=== PATIENT | female | born 1985 | race Caucasian/White ===

== ENCOUNTER 2016-03-02 06:08 | Emergency (ER) | payer SELFPAY ==
[2016-03-02] MEDS ORDERED: Naproxen 500 MG TAB ONE (07:09)
[2016-03-02] MEDS ORDERED: HYDROcodone/Acetaminophen 10/325 mg Tablet ONE (07:09)
[2016-03-02 07:44] LABS: Bilirubin Negative (Negative); Blood, Urine Negative (Negative); Clarity Clear (Clear); Glucose, Urine (Dipstick) 100 mg/dL (Negative); Leukocyte Negative (Negative); Nitrite Negative (Negative); Protein, Urine (Dipstick) Negative (Neg-Trace); Urobilinogen 0.2 mg/dL (0.2-1.0); pH, Urine 6.5 (5.0-9.0)
[2016-03-02 08:03] LABS: ALT (SGPT) 8 U/L (0-55); AST (SGOT) 9 U/L (5-34); Albumin 4.1 g/dL (3.5-5.0); Alkaline Phosphatase 48 U/L (40-150); Anion Gap 15 mmol/L (10-20); BUN (Urea Nitrogen) 8 mg/dL (7.0-18.7); Bilirubin, Total 0.7 mg/dL (0.2-1.2); Calc. Creatinine Clearance 0 mL/min (70-130); Calcium 9.1 mg/dL (7.8-10.44); Carbon Dioxide 22 mmol/L (22-29); Chloride 105 mmol/L (98-107); Estimated GFR-MDRD Greater than 90; Glucose 143 mg/dL (70-105); Sodium 138 mmol/L (136-145)
[2016-03-02 08:16] LABS: #Basophils 0.1 thou/uL (0.0-0.2); #Eosinphils 0.1 thou/uL (0.0-0.7); #Lymphocytes 2.1 thou/uL (1.20-3.40); #Monocytes 0.5 thou/uL (0.11-0.59); #Neutrophils 6.8 thou/uL (1.40-6.50); %Basophils 0.7 % (0.0-1.0); %Lymphocytes 22.2 % (21.0-51.0); %Monocytes 5.3 % (0.0-10.0); %Neutrophils 70.8 % (42.0-75.0); Hemoglobin 15.7 g/dL (12.0-16.0); Mean Corpuscular HGB CONC 36.9 g/dL (32.0-36.0); Mean Platelet Volume 7.1 fL (7.4-10.4); Platelet Count 184 thou/uL (130-400); RBC Distribution Width 10.4 % (11.5-14.5); Red Blood Cell (RBC) Count 4.49 mill/uL (4.20-5.40); White Blood Cell (WBC) Count 9.6 thou/uL (4.8-10.8)
[2016-03-02 08:18] LABS: Globulin 2.5 g/dL (2.4-3.5); Protein, Total 6.6 g/dL (6.0-8.3)
[2016-03-02 08:58] LABS: Bacteria/HPF Rare-Few HPF (None Seen); RBC/HPF 0-3 HPF (0-3); Renal Epithelial 0-3 HPF (0-3); Transitional Epithelial 0-3 HPF (0-3); WBC/HPF 0-3 HPF (0-3); Yeast-All Forms None Seen HPF (None Seen)
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
== END 2016-03-02 09:25 | disposition home or self-care (01) ==
LOC: MADERS 06:08
DX: M62.838 Other muscle spasm (principal); M76.9 Unspecified enthesopathy, lower limb, excluding foot; E11.9 Type 2 diabetes mellitus without complications; F41.9 Anxiety disorder, unspecified; F31.9 Bipolar disorder, unspecified; F17.210 Nicotine dependence, cigarettes, uncomplicated
CPT/HCPCS: 36415; 36416; 80053; 81003; 81015; 85025; 87086; 99284

== ENCOUNTER 2016-04-20 20:57 | Emergency (ER) | payer SELFPAY ==
[2016-04-20] MEDS ORDERED: Sulfameth/Trimethoprim DS 800-160mg TAB ONE (21:28)
== END 2016-04-20 21:50 | disposition home or self-care (01) ==
LOC: MADERS 20:57
DX: L03.312 Cellulitis of back [any part except buttock and flank] (principal); I10 Essential (primary) hypertension; E11.9 Type 2 diabetes mellitus without complications; F31.9 Bipolar disorder, unspecified; F41.9 Anxiety disorder, unspecified; F17.210 Nicotine dependence, cigarettes, uncomplicated; Z79.4 Long term (current) use of insulin
CPT/HCPCS: 36416; 99283

== ENCOUNTER 2016-05-14 19:44 | Emergency (ER) | payer SELFPAY ==
[2016-05-14 20:19] LABS: Bilirubin Negative (Negative); Blood, Urine Large (Negative); Clarity Cloudy (Clear); Glucose, Urine (Dipstick) Negative (Negative); Leukocyte Negative (Negative); Nitrite Negative (Negative); Pregu Control Bar Appear? YES (CONTROL BAR); Protein, Urine (Dipstick) Negative (Neg-Trace); Specific Gravity 1.025 (1.002-1.036); Specific Gravity, Urine 1.025 (1.005-1.030); Urobilinogen 0.2 mg/dL (0.2-1.0)
[2016-05-14 20:26] LABS: Bacteria/HPF Rare-Few HPF (None Seen); RBC/HPF GREATER THAN 50-TNTC HPF (0-3); WBC/HPF 0-3 HPF (0-3)
== END 2016-05-14 20:29 | disposition home or self-care (01) ==
LOC: MADERS 19:44
DX: N76.0 Acute vaginitis (principal); E11.9 Type 2 diabetes mellitus without complications; F41.9 Anxiety disorder, unspecified; F31.9 Bipolar disorder, unspecified; F17.210 Nicotine dependence, cigarettes, uncomplicated; Z79.4 Long term (current) use of insulin
CPT/HCPCS: 36416; 81003; 81015; 81025; 99284

== ENCOUNTER 2016-06-23 20:54 | Emergency (ER) | payer SELFPAY ==
[~2016-06-23 20:54] MED LIST: Iopamidol 370 76% 100 ML VIAL ONE; Sodium Chloride 0.9% 100 ML BAG ONE
[2016-06-23] MEDS ORDERED: Ketorolac Tromethamine 30 MG/ML VIAL ONE (21:39)
[2016-06-23 22:07] LABS: BHCG - Serum NEGATIVE (NEGATIVE); Pregs Control Background? CLEAR/WHITE (CLR/WHITE); Pregs Control Bar Appear? YES (CONTROL BAR)
[2016-06-23 22:10] LABS: Amphetamine Not Detected (NotDetected); Barbiturates Screen Not Detected (NotDetected); Benzodiazepine Screen Not Detected (NotDetected); Cocaine Metabolite Screen Not Detected (NotDetected); Medtox Control Line Valid? VALID (VALID); Methadone Not Detected (NotDetected); Methamphetamine Not Detected (NotDetected); Opiate Screen Not Detected (NotDetected); Oxycodone Screen Not Detected (NotDetected); Phencyclidine (PCP) Not Detected (NotDetected); THC/Cannabinoid Screen Detected (NotDetected); Tricyclic Screen Not Detected (NotDetected)
[2016-06-23 22:12] LABS: #Basophils 0.1 thou/uL (0.0-0.2); #Eosinphils 0.1 thou/uL (0.0-0.7); #Lymphocytes 2.2 thou/uL (1.20-3.40); #Monocytes 0.5 thou/uL (0.11-0.59); #Neutrophils 7.5 thou/uL (1.40-6.50); %Basophils 0.7 % (0.0-1.0); %Eosinophils 1.3 % (0.0-10.0); %Lymphocytes 20.9 % (21.0-51.0); %Monocytes 4.4 % (0.0-10.0); %Neutrophils 72.7 % (42.0-75.0); Hemoglobin 16.9 g/dL (12.0-16.0); Mean Corpuscular HGB CONC 37.5 g/dL (32.0-36.0); Mean Corpuscular Hemoglobin 36.1 pg (27.0-31.0); Mean Corpuscular Volume 96.1 fl (81.0-99.0); Mean Platelet Volume 7.3 fL (7.4-10.4); Platelet Count 212 thou/uL (130-400); RBC Distribution Width 10.5 % (11.5-14.5); Red Blood Cell (RBC) Count 4.67 mill/uL (4.20-5.40); White Blood Cell (WBC) Count 10.3 thou/uL (4.8-10.8)
[2016-06-23 22:13] LABS: Clarity Clear (Clear)
[2016-06-23 22:14] LABS: Bilirubin Negative (Negative); Blood, Urine Negative (Negative); Glucose, Urine (Dipstick) 250 mg/dL (Negative); Leukocyte Negative (Negative); Nitrite Negative (Negative); Protein, Urine (Dipstick) Negative (Neg-Trace); Specific Gravity, Urine 1.029 (1.002-1.036); Urobilinogen 0.2 mg/dL (0.2-1.0); pH, Urine 6.5 (5.0-9.0)
[2016-06-23 22:20] LABS: ALT (SGPT) 10 U/L (8-55); AST (SGOT) 10 U/L (5-34); Albumin 4.2 g/dL (3.5-5.0); Alcohol Less than 10 mg/dL (Less than 10); Alkaline Phosphatase 52 U/L (40-150); Anion Gap 15 mmol/L (10-20); BUN (Urea Nitrogen) 10 mg/dL (7.0-18.7); Bilirubin, Total 0.5 mg/dL (0.2-1.2); CRP (Inflammatory) 0.67 mg/dL (= or < 0.5); Calc. Creatinine Clearance 0 mL/min (70-130); Calcium 9.4 mg/dL (7.8-10.44); Carbon Dioxide 21 mmol/L (22-29); Chloride 105 mmol/L (98-107); Estimated GFR-MDRD Greater than 90; Globulin 2.8 g/dL (2.4-3.5); Glucose 220 mg/dL (70-105); Potassium 4.2 mmol/L (3.5-5.1); Sodium 137 mmol/L (136-145)
--- NOTE | 2016-06-23 22:40 | CT ---
ABDOMEN CT WITH CONTRAST PELVIC CT WITH CONTRAST: Comparison: 03-09-14 Technique: Abdomen and pelvis CT are performed with IV contrast. Coronal reformatted images are subm itted for interpretation. History: Suprapubic pain x several months, worse today. FINDINGS: ABDOMEN CT: Lung bases are clear. Heart size is normal. No pericardial effusion. Descending thoracic aorta and abdominal aorta are of normal caliber. No periaortic fat stranding. Symmetric attenuation of the psoas muscles. CT evidence of cholelithiasis without evidence of cholecystitis. Gallbladder is contracted. Intra and extra hepatic portal vein is patent. Liver, spleen, pancreas and adrenal glands have appropriate attenuation and enhancement. Symmetric enhancement of the kidneys. Bilaterally, no obstructive uropathy. No mass, lymphadenopathy, free air or free fluid. Limited evaluation of the alimentary canal due to lack of oral contrast. Gastric mucosa and duodenum are unremarkable. Multiple normal caliber small bowel loops. Ileocecal junction is normal. Normal c aliber appendix. Scattered fecal material throughout a nondistended, nondilated colon. PELVIC CT: Urinary bladder is decompressed. No free fluid in the pelvis. No lymphadenopathy or free air. There is a large uterine leiomyoma occupying the majority of the uterus, measuring 9.1 x 8.9 cm. The uteri ne leiomyoma was noted on the previous CT. Multiple other smaller leiomyomas may be present. Left an d right ovary appear to be grossly unremarkable. There are no osteoblastic or osteolytic lesions. IMPRESSION: 1. Multiple uterine leiomyomas with a resultant enlarged uterus. BOOKING CLERK consultation is recommended. 2. Cholelithiasis and without evidence of cholecystitis. 3. Normal caliber appendix. POS: [facility]
[2016-06-23] MEDS ORDERED: Azithromycin 250 MG TAB ONE (22:58)
[2016-06-23] MEDS ORDERED: cefTRIAXone\\ROCEPHIN 1 GM VIAL ONE (22:58)
== END 2016-06-23 23:18 | disposition home or self-care (01) ==
LOC: MADERS 20:54
DX: K80.20 Calculus of gallbladder without cholecystitis without obstruction (principal); D25.9 Leiomyoma of uterus, unspecified; E11.9 Type 2 diabetes mellitus without complications; I10 Essential (primary) hypertension; F41.9 Anxiety disorder, unspecified; F31.9 Bipolar disorder, unspecified; F17.210 Nicotine dependence, cigarettes, uncomplicated; Z79.4 Long term (current) use of insulin
CPT/HCPCS: 36415; 74177; 80053; 80306; 80307; 81003; 84703; 85025; 86140; 87086; 96372; 96374; J0696; J1885; J7050

== ENCOUNTER 2016-07-24 08:52 | Outpatient (CLI) | payer MEDICAID, SELFPAY ==
[2016-07-24 09:22] LABS: Hemoglobin A1c 5.5 % (4.0-6.0)
[2016-07-24 09:46] LABS: ALT (SGPT) 11 U/L (8-55); AST (SGOT) 11 U/L (5-34); Albumin 4.1 g/dL (3.5-5.0); Alkaline Phosphatase 47 U/L (40-150); Anion Gap 14 mmol/L (10-20); BUN (Urea Nitrogen) 16 mg/dL (7.0-18.7); Calc. Creatinine Clearance 0 mL/min (70-130); Carbon Dioxide 25 mmol/L (22-29); Cardiac Risk 3.2 (Less than 4.5); Chloride 105 mmol/L (98-107); Cholesterol 144 mg/dl (< 200 Desired); Estimated GFR-MDRD 87; Glucose 145 mg/dL (70-105); HDL Cholesterol 45 mg/dL (>60 Neg Risk); LDL Cholesterol, Calculated 85 mg/dL; Potassium 3.8 mmol/L (3.5-5.1); Protein, Total 7.1 g/dL (6.0-8.3); Sodium 140 mmol/L (136-145); Triglycerides 69 mg/dL (Less than 150)
[2016-07-24 10:03] LABS: #Basophils 0.1 thou/uL (0.0-0.2); #Eosinphils 0.2 thou/uL (0.0-0.7); #Lymphocytes 2.3 thou/uL (1.20-3.40); #Monocytes 0.4 thou/uL (0.11-0.59); #Neutrophils 4.4 thou/uL (1.40-6.50); %Basophils 1.2 % (0.0-1.0); %Eosinophils 2.8 % (0.0-10.0); %Lymphocytes 31.5 % (21.0-51.0); %Monocytes 5.2 % (0.0-10.0); %Neutrophils 59.3 % (42.0-75.0); Anisocytosis SLIGHT = 6-15 cells (100X) (0-5/hpf); Hemoglobin 16.3 g/dL (12.0-16.0); MDiff Complete? YES; Mean Corpuscular HGB CONC 36.5 g/dL (32.0-36.0); Mean Corpuscular Hemoglobin 35.3 pg (27.0-31.0); Mean Corpuscular Volume 96.6 fl (81.0-99.0); Mean Platelet Volume 7.1 fL (7.4-10.4); Platelet Count 205 thou/uL (130-400); RBC Distribution Width 10.8 % (11.5-14.5); White Blood Cell (WBC) Count 7.4 thou/uL (4.8-10.8)
[2016-07-24 18:20] LABS: Creatinine, Urine 146.39 mg/dL (47-110); Microalbumin Urine 2.8 mg/dL (0.5-50.0); Microalbumin/Creat Ratio 19.1 mg/g (Less than 30)
[2016-07-24 18:30] LABS: HBSAB Concentration 1.36 mIU/mL; HBSAg Index 0.18 S/CO (0-0.99); HIV (1/2) Antibody/Antigen Non-Reactive (NonReactive); HIV 1/2 INDEX 0.18 S/CO (<1.00); Hep B Core Total Ab Non-Reactive (NonReactive); Hep B Core Total Index 0.08 S/CO (0-0.79); Hep B Surf AB Non-Reactive (NonReactive); Hep B Surf Ag Non-Reactive S/CO (NonReactive)
[2016-07-25 21:27] LABS: HPV High Risk Type 16 Negative (Negative); HPV High Risk Type 18 POSITIVE (Negative); HPV Other High Risk Types Negative (Negative)
[2016-07-28 19:40] LABS: Chlamydia by PCR Not Detected (NotDetected); GC by PCR Not Detected (NotDetected)
== END 2016-07-24 08:53 | disposition home or self-care (01) ==
LOC: MADLABBHPM 08:52
PROVIDERS: ATTEND Family Medicine
DX: R73.9 Hyperglycemia, unspecified (principal)
CPT/HCPCS: 36415; 80053; 80061; 82043; 83036; 84681; 85025; 86592; 86704; 86706; 86762; 87340; 87389; 87480; 87491; 87510; 87591; 87624; 87660; 88142; G0123

== ENCOUNTER 2016-11-14 23:20 | Emergency (ER) | payer MEDICAID ==
[~2016-11-14 23:20] MED LIST changes: -Sodium Chloride 0.9% 100 ML BAG ONE
[2016-11-14] MEDS ORDERED: Ondansetron HCl/PF 4 MG/2 ML Vial ONE (23:43)
[2016-11-15 00:31] LABS: Bilirubin Negative (Negative); Blood, Urine Large (Negative); Clarity Cloudy (Clear); Glucose, Urine (Dipstick) Negative (Negative); Leukocyte Negative (Negative); Nitrite Negative (Negative); Protein, Urine (Dipstick) 30 mg/dL (Neg-Trace); Urobilinogen 0.2 mg/dL (0.2-1.0); pH, Urine 5.5 (5.0-9.0)
[2016-11-15 00:34] LABS: BHCG - Serum Negative (NEGATIVE); Pregs Control Background? CLEAR/WHITE (CLR/WHITE); Pregs Control Bar Appear? YES (CONTROL BAR)
[2016-11-15 00:37] LABS: #Basophils 0.1 thou/uL (0.0-0.2); #Eosinphils 0.2 thou/uL (0.0-0.7); #Lymphocytes 2.8 thou/uL (1.20-3.40); #Monocytes 0.5 thou/uL (0.11-0.59); #Neutrophils 7.5 thou/uL (1.40-6.50); %Basophils 0.8 % (0.0-1.0); %Eosinophils 1.4 % (0.0-10.0); %Lymphocytes 25.6 % (21.0-51.0); %Monocytes 4.3 % (0.0-10.0); ALT (SGPT) 7 U/L (8-55); AST (SGOT) 10 U/L (5-34); Alkaline Phosphatase 48 U/L (40-150); Anion Gap 11 mmol/L (10-20); BUN (Urea Nitrogen) 12 mg/dL (7.0-18.7); Bilirubin, Total 0.5 mg/dL (0.2-1.2); Calc. Creatinine Clearance 0 mL/min (70-130); Calcium 9.1 mg/dL (7.8-10.44); Carbon Dioxide 26 mmol/L (22-29); Chloride 106 mmol/L (98-107); Estimated GFR-MDRD Greater than 90; Globulin 2.9 g/dL (2.4-3.5); Glucose 127 mg/dL (70-105); Hemoglobin 14.7 g/dL (12.0-16.0); Mean Corpuscular HGB CONC 35.8 g/dL (32.0-36.0); Mean Corpuscular Hemoglobin 34.8 pg (27.0-31.0); Mean Corpuscular Volume 97.1 fl (81.0-99.0); Platelet Count 229 thou/uL (130-400); Potassium 3.7 mmol/L (3.5-5.1); Protein, Total 6.9 g/dL (6.0-8.3); RBC Distribution Width 10.6 % (11.5-14.5); Red Blood Cell (RBC) Count 4.23 mill/uL (4.20-5.40); Sodium 139 mmol/L (136-145); White Blood Cell (WBC) Count 11.1 thou/uL (4.8-10.8)
[2016-11-15 00:39] LABS: Specific Gravity, Urine 1.033 (1.002-1.036)
[2016-11-15 00:47] LABS: RBC/HPF GREATER THAN 50-TNTC HPF (0-3); Transitional Epithelial 0-3 HPF (0-3)
[2016-11-15 00:48] LABS: Bacteria/HPF 1+ HPF (None Seen)
[2016-11-15 00:51] LABS: Lipase 45 U/L (8-78)
--- NOTE | 2016-11-15 09:15 | CT ---
PRELIMINARY REPORT/[facility]/EMERGENCY AFTER HOURS PROCEDURE: EXAM: CT Abdomen and Pelvis With Intravenous Contrast CLINICAL HISTORY: 31 years old, female; Pain; Abdominal pain; Flank; Left lower quadrant (llq) TECHNIQUE: Axial computed tomography images of the abdomen and pelvis with intravenous contrast. All CT scans a t this facility use one or more dose reduction techniques, viz.: automated exposure control; ma/kV a djustment per patient size (including targeted exams where dose is matched to indication; i.e. head) ; or iterative reconstruction technique. CONTRAST: 96 mL of ISOVUE 370 administered intravenously. COMPARISON: No relevant prior studies available. FINDINGS: Lower thorax: No acute findings. ABDOMEN: Liver: Unremarkable. No mass. Gallbladder and bile ducts: Cholelithiasis without evidence of acute cholecystitis. No ductal dilati on. Pancreas: Unremarkable. No mass. No ductal dilation. Spleen: Unremarkable. No splenomegaly. Adrenals: Unremarkable. No mass. Kidneys and ureters: Unremarkable. No solid mass. No hydronephrosis. Stomach and bowel: Unremarkable. No obstruction. No mucosal thickening. Appendix: No findings to suggest acute appendicitis. PELVIS: Bladder: Unremarkable. No mass. Reproductive: Markedly enlarged uterus with multiple hyperdense masses. Questionable large submucosa l 8 cm x 8 cm fibroid. ABDOMEN and PELVIS: Intraperitoneal space: Unremarkable. No free air. No significant fluid collection. Bones/joints: No acute fracture. No dislocation. Soft tissues: Unremarkable. Vasculature: Unremarkable. No abdominal aortic aneurysm. Lymph nodes: Unremarkable. No enlarged lymph nodes. IMPRESSION: Markedly enlarged uterus with multiple enhancing and hypodense fibroids. There appears to be a large 8 cm x 8 cm submucosal fibroid. This could be further characterized with ultrasound or MRI. Cholelithiasis without evidence of acute cholecystitis. Thank you for allowing us to participate in the care of your patient. Dictated and Authenticated by: Nabor Mckee MD 11/15/2016 1:48 AM Central Time ([place] \T\ [place]) FINAL REPORT CONTRAST ENHANCED CT IMAGES ABDOMEN AND PELVIS: DATE: 11/15/16. COMPARISON: Comparison is made to previous exam from . HISTORY: This 31-year-old presents with a history of left lower quadrant pain. The patient has a history of cervical cancer and uterine cancer. FINDINGS: Contrast-enhanced CT images of the abdomen and pelvis were obtained after administration of IV contr ast. No significant interval change is seen since the previous comparison CT from 06/23/16. The lung bases are unremarkable. The liver and spleen are unremarkable. A large gallstone is seen. The pancreas is unremarkable. The adrenal glands and kidneys are unremarkable. No evidence of pe riaortic lymphadenopathy is seen. Numerous areas of heterogeneity noted in the uterus concerning for a uterine fibroid and masses. Co rrelate with physical exam. There is an area of heterogeneity noted in the region of the cervix. I cannot exclude the possibility of a cervical malignancy in this patient. No evidence of bowel obst ruction seen. I concur with the dictation from [facility]. POS: [facility]
== END 2016-11-15 02:00 | disposition home or self-care (01) ==
LOC: MADERS 23:20
DX: R10.30 Lower abdominal pain, unspecified (principal); E11.9 Type 2 diabetes mellitus without complications; F31.9 Bipolar disorder, unspecified; F41.9 Anxiety disorder, unspecified; F17.210 Nicotine dependence, cigarettes, uncomplicated; Z79.4 Long term (current) use of insulin
CPT/HCPCS: 36415; 74177; 80053; 81003; 81015; 83690; 84703; 85025; 96374; 96375; J2270; J2405

== ENCOUNTER 2016-12-05 19:19 | Emergency (ER) | payer MEDICAID ==
[2016-12-05 20:05] LABS: Bilirubin Negative (Negative); Blood, Urine Negative (Negative); Glucose, Urine (Dipstick) Negative (Negative); Leukocyte Negative (Negative); Nitrite Negative (Negative); Protein, Urine (Dipstick) Negative (Neg-Trace); Specific Gravity, Urine 1.025 (1.005-1.030)
[2016-12-05 20:06] LABS: Clarity Hazy (Clear)
[2016-12-05 20:07] LABS: Pregnancy Test - Urine (BHCG) Negative (Negative); Pregu Control Background? CLEAR/WHITE (CLR/WHITE); Pregu Control Bar Appear? YES (CONTROL BAR); Specific Gravity 1.025 (1.002-1.036)
[2016-12-05 20:09] LABS: #Eosinphils 0.2 thou/uL (0.0-0.7); #Lymphocytes 1.9 thou/uL (1.20-3.40); #Monocytes 0.4 thou/uL (0.11-0.59); #Neutrophils 4.8 thou/uL (1.40-6.50); %Basophils 0.6 % (0.0-1.0); %Eosinophils 2.5 % (0.0-10.0); %Lymphocytes 25.6 % (21.0-51.0); %Monocytes 5.8 % (0.0-10.0); %Neutrophils 65.5 % (42.0-75.0); Hemoglobin 15.1 g/dL (12.0-16.0); Mean Corpuscular HGB CONC 34.6 g/dL (32.0-36.0); Mean Corpuscular Hemoglobin 34.1 pg (27.0-31.0); Mean Corpuscular Volume 98.6 fl (81.0-99.0); Mean Platelet Volume 6.5 fL (7.4-10.4); Platelet Count 196 thou/uL (130-400); RBC Distribution Width 10.6 % (11.5-14.5); Red Blood Cell (RBC) Count 4.41 mill/uL (4.20-5.40); White Blood Cell (WBC) Count 7.3 thou/uL (4.8-10.8)
[2016-12-05 20:15] LABS: Manual Diff?? NO
[2016-12-05 20:17] LABS: Anion Gap 14 mmol/L (10-20); BUN (Urea Nitrogen) 9 mg/dL (7.0-18.7); Calc. Creatinine Clearance 0 mL/min (70-130); Calcium 9.9 mg/dL (7.8-10.44); Carbon Dioxide 24 mmol/L (22-29); Chloride 103 mmol/L (98-107); Estimated GFR-MDRD Greater than 90; Glucose 109 mg/dL (70-105); Potassium 4.2 mmol/L (3.5-5.1); Sodium 137 mmol/L (136-145)
[2016-12-05] MEDS ORDERED: Ketorolac Tromethamine 60 MG/2 ML VIAL ONE (20:22)
[2016-12-05] MEDS ORDERED: Ondansetron ODT 4 MG TAB ONE (20:22)
== END 2016-12-05 20:43 | disposition home or self-care (01) ==
LOC: MADERS 19:19
DX: R10.32 Left lower quadrant pain (principal); E11.9 Type 2 diabetes mellitus without complications; F41.9 Anxiety disorder, unspecified; F31.9 Bipolar disorder, unspecified; F17.210 Nicotine dependence, cigarettes, uncomplicated
CPT/HCPCS: 36415; 80048; 81003; 81025; 85025; 96372; J1885; Q0162

== ENCOUNTER 2016-12-15 06:11 | Emergency (ER) | payer MEDICAID ==
[2016-12-15 07:01] LABS: #Basophils 0.1 thou/uL (0.0-0.2); #Eosinphils 0.3 thou/uL (0.0-0.7); #Lymphocytes 1.8 thou/uL (1.20-3.40); #Monocytes 0.5 thou/uL (0.11-0.59); #Neutrophils 5.5 thou/uL (1.40-6.50); %Basophils 0.9 % (0.0-1.0); %Eosinophils 3.2 % (0.0-10.0); %Lymphocytes 22.1 % (21.0-51.0); %Monocytes 6.2 % (0.0-10.0); %Neutrophils 67.6 % (42.0-75.0); Hemoglobin 15.9 g/dL (12.0-16.0); Mean Corpuscular HGB CONC 36.7 g/dL (32.0-36.0); Mean Corpuscular Hemoglobin 35.9 pg (27.0-31.0); Mean Corpuscular Volume 97.8 fl (81.0-99.0); Mean Platelet Volume 6.9 fL (7.4-10.4); Platelet Count 218 thou/uL (130-400); RBC Distribution Width 10.4 % (11.5-14.5); Red Blood Cell (RBC) Count 4.44 mill/uL (4.20-5.40); White Blood Cell (WBC) Count 8.1 thou/uL (4.8-10.8)
[2016-12-15 07:06] LABS: Acetaminophen Less than 6.0 mcg/mL (6.0-30.0)
[2016-12-15] MEDS ORDERED: Ketorolac Tromethamine 30 MG/ML VIAL ONE (07:06)
[2016-12-15] MEDS ORDERED: Ondansetron HCl/PF 4 MG/2 ML Vial ONE (07:06)
[2016-12-15 07:09] LABS: Anion Gap 16 mmol/L (10-20); BUN (Urea Nitrogen) 10 mg/dL (7.0-18.7); Calc. Creatinine Clearance 0 mL/min (70-130); Calcium 8.9 mg/dL (7.8-10.44); Carbon Dioxide 18 mmol/L (22-29); Chloride 109 mmol/L (98-107); Estimated GFR-MDRD Greater than 90; Glucose 184 mg/dL (70-105); Potassium 3.9 mmol/L (3.5-5.1); Sodium 139 mmol/L (136-145)
[2016-12-15 07:22] LABS: Anisocytosis SLIGHT = 6-15 cells (100X) (0-5/hpf); PLT Morphology Comment Appears Adequate
[2016-12-15 07:23] LABS: Acetaminophen Less than 6.0 mcg/mL (10.0-30.0); Alcohol Less than 10 mg/dL (Less than 10); Salicylate Less than 8.0 mg/dL (15.0-30.0)
[2016-12-15 07:36] LABS: Bilirubin Negative (Negative); Blood, Urine Large (Negative); Clarity Hazy (Clear); Glucose, Urine (Dipstick) Negative (Negative); Leukocyte Negative (Negative); Nitrite Negative (Negative); Protein, Urine (Dipstick) Negative (Neg-Trace); Urobilinogen 0.2 mg/dL (0.2-1.0); pH, Urine 5.5 (5.0-9.0)
[2016-12-15 07:37] LABS: Pregnancy Test - Urine (BHCG) Negative (Negative); Pregu Control Background? CLEAR/WHITE (CLR/WHITE); Pregu Control Bar Appear? YES (CONTROL BAR)
[2016-12-15 07:41] LABS: WBC/HPF 0-3 HPF (0-3)
[2016-12-15 07:42] LABS: Bacteria/HPF 2+ HPF (None Seen)
[2016-12-15] MEDS ORDERED: Ciprofloxacin 500 MG TAB ONE (07:58)
== END 2016-12-15 09:05 | disposition home or self-care (01) ==
LOC: MADERS 06:11
DX: N39.0 Urinary tract infection, site not specified (principal); F41.9 Anxiety disorder, unspecified; F31.9 Bipolar disorder, unspecified; F17.210 Nicotine dependence, cigarettes, uncomplicated; Z79.899 Other long term (current) drug therapy
CPT/HCPCS: 80048; 80307; 81003; 81015; 81025; 85025; 96374; 96375; J1885; J2405

== ENCOUNTER 2016-12-18 08:39 | Emergency (ER) | payer MEDICAID ==
[2016-12-18] MEDS ORDERED: Ondansetron ODT 4 MG TAB ONE (09:15)
[2016-12-18 09:46] LABS: Hemoglobin 14.1 g/dL (12.0-16.0); Mean Corpuscular HGB CONC 36.8 g/dL (32.0-36.0); Mean Corpuscular Hemoglobin 35.9 pg (27.0-31.0); Mean Corpuscular Volume 97.6 fl (81.0-99.0); Mean Platelet Volume 6.5 fL (7.4-10.4); Platelet Count 202 thou/uL (130-400); RBC Distribution Width 10.2 % (11.5-14.5); Red Blood Cell (RBC) Count 3.93 mill/uL (4.20-5.40); White Blood Cell (WBC) Count 8.2 thou/uL (4.8-10.8)
[2016-12-18 09:48] LABS: Pregnancy Test - Urine (BHCG) Negative (Negative); Pregu Control Background? CLEAR/WHITE (CLR/WHITE); Pregu Control Bar Appear? YES (CONTROL BAR); Specific Gravity 1.016 (1.002-1.036)
[2016-12-18 09:52] LABS: ALT (SGPT) 7 U/L (8-55); AST (SGOT) 9 U/L (5-34); Albumin 3.9 g/dL (3.5-5.0); Alkaline Phosphatase 44 U/L (40-150); Anion Gap 12 mmol/L (10-20); BUN (Urea Nitrogen) 8 mg/dL (7.0-18.7); Bilirubin, Total 0.6 mg/dL (0.2-1.2); Calc. Creatinine Clearance 0 mL/min (70-130); Calcium 8.8 mg/dL (7.8-10.44); Carbon Dioxide 23 mmol/L (22-29); Chloride 106 mmol/L (98-107); Estimated GFR-MDRD Greater than 90; Globulin 2.8 g/dL (2.4-3.5); Glucose 167 mg/dL (70-105); Potassium 3.6 mmol/L (3.5-5.1); Protein, Total 6.7 g/dL (6.0-8.3); Sodium 137 mmol/L (136-145)
[2016-12-18 09:56] LABS: Clarity Cloudy (Clear); Specific Gravity, Urine 1.016 (1.002-1.036)
[2016-12-18 09:57] LABS: Bilirubin Unable to Interpret (Negative); Blood, Urine Large (Negative); Glucose, Urine (Dipstick) Unable to Interpret mg/dL (Negative); Leukocyte Unable to Interpret (Negative); Nitrite Unable to Interpret (Negative); Protein, Urine (Dipstick) Unable to Interpret mg/dL (Neg-Trace)
[2016-12-18 09:58] LABS: Bacteria/HPF Rare-Few HPF (None Seen); RBC/HPF GREATER THAN 50-TNTC HPF (0-3)
[2016-12-18 09:59] LABS: Amphetamine Not Detected (NotDetected); Barbiturates Screen Not Detected (NotDetected); Benzodiazepine Screen Not Detected (NotDetected); Cocaine Metabolite Screen Not Detected (NotDetected); Medtox Control Line Valid? VALID (VALID); Methadone Not Detected (NotDetected); Methamphetamine Not Detected (NotDetected); Opiate Screen Detected (NotDetected); Oxycodone Screen Not Detected (NotDetected); Phencyclidine (PCP) Not Detected (NotDetected); THC/Cannabinoid Screen Detected (NotDetected); Tricyclic Screen Not Detected (NotDetected)
[2016-12-18 10:04] LABS: MDiff Complete? YES; Manual Diff?? YES
[2016-12-18 10:05] LABS: Anisocytosis SLIGHT = 6-15 cells (100X) (0-5/hpf); Band 1 % (5-11); Lymphocytes 21 % (21-51); Monocytes 5 % (0-10); Neutrophil 72 % (42-75); PLT Morphology Comment Appears Adequate
[2016-12-18 10:34] LABS: CRP (Inflammatory) 1.5 mg/dL (= or < 0.5)
[2016-12-18] MEDS ORDERED: Ketorolac Tromethamine 60 MG/2 ML VIAL ONE (10:39)
== END 2016-12-18 10:50 | disposition home or self-care (01) ==
LOC: MADERS 08:39
DX: N30.00 Acute cystitis without hematuria (principal); F12.10 Cannabis abuse, uncomplicated; D25.9 Leiomyoma of uterus, unspecified; E11.9 Type 2 diabetes mellitus without complications; F31.9 Bipolar disorder, unspecified; F17.210 Nicotine dependence, cigarettes, uncomplicated
CPT/HCPCS: 80053; 80306; 81003; 81015; 81025; 82150; 83690; 85025; 86140; 96372; J1885; Q0162

== ENCOUNTER 2016-12-23 09:12 | Emergency (ER) | payer MEDICAID ==
[2016-12-23] MEDS ORDERED: Ketorolac Tromethamine 30 MG/ML VIAL ONE (10:02)
[2016-12-23] MEDS ORDERED: Ondansetron ODT 4 MG TAB ONE (10:02)
[2016-12-23 10:05] LABS: Bilirubin Negative (Negative); Blood, Urine Small (Negative); Clarity Clear (Clear); Glucose, Urine (Dipstick) Negative (Negative); Leukocyte Negative (Negative); Nitrite Negative (Negative); Protein, Urine (Dipstick) Negative (Neg-Trace); Specific Gravity, Urine 1.015 (1.005-1.030); Urobilinogen 0.2 mg/dL (0.2-1.0); pH, Urine 6.5 (5.0-9.0)
[2016-12-23 10:06] LABS: Pregnancy Test - Urine (BHCG) Negative (Negative); Specific Gravity 1.015 (1.002-1.036)
[2016-12-23 10:07] LABS: Pregu Control Background? CLEAR/WHITE (CLR/WHITE); Pregu Control Bar Appear? YES (CONTROL BAR)
[2016-12-23 10:10] LABS: Bacteria/HPF Rare-Few HPF (None Seen); RBC/HPF 0-3 HPF (0-3); Squamous Epithelial 0-3 HPF (0-3); WBC/HPF 0-3 HPF (0-3)
== END 2016-12-23 10:25 | disposition home or self-care (01) ==
LOC: MADERS 09:12
DX: N87.9 Dysplasia of cervix uteri, unspecified (principal); E11.9 Type 2 diabetes mellitus without complications; F31.9 Bipolar disorder, unspecified; F41.9 Anxiety disorder, unspecified; Z71.6 Tobacco abuse counseling; F17.210 Nicotine dependence, cigarettes, uncomplicated
CPT/HCPCS: 81003; 81015; 81025; 96372; 99406; J1885; Q0162

== ENCOUNTER 2017-01-27 14:13 | Emergency (ER) | payer MEDICAID ==
[~2017-01-27 14:13] MED LIST changes: +Sodium Chloride 0.9% 1,000 ML BAG ONE
[2017-01-27] MEDS ORDERED: Morphine 4 MG/ML VIAL ONE ×2 (14:45→19:44)
[2017-01-27] MEDS ORDERED: Ondansetron HCl/PF 4 MG/2 ML Vial ONE (14:45)
[2017-01-27] MEDS ORDERED: Ketorolac Tromethamine 30 MG/ML VIAL ONE (14:45)
--- NOTE | 2017-01-27 15:09 | RAD ---
PORTABLE CHEST ONE VIEW 01/27/2017 at 2:48 p.m.: HISTORY: Diffuse abdominal pain. FINDINGS: The heart size is normal. The lungs are expanded without focal areas of consolidation, pneumothorax, or pleural effusions. IMPRESSION: No radiographic evidence of acute cardiopulmonary process. POS: [facility]
[2017-01-27 15:15] LABS: BHCG - Serum Negative (NEGATIVE); Pregs Control Bar Appear? YES (CONTROL BAR)
[2017-01-27 15:16] LABS: Pregs Control Background? CLEAR/WHITE (CLR/WHITE)
[2017-01-27 15:21] LABS: ALT (SGPT) 10 U/L (8-55); AST (SGOT) 7 U/L (5-34); Albumin 4.1 g/dL (3.5-5.0); Alkaline Phosphatase 57 U/L (40-150); Anion Gap 18 mmol/L (10-20); BUN (Urea Nitrogen) 10 mg/dL (7.0-18.7); Bilirubin, Total 0.6 mg/dL (0.2-1.2); Calc. Creatinine Clearance 0 mL/min (70-130); Calcium 9.1 mg/dL (7.8-10.44); Carbon Dioxide 21 mmol/L (22-29); Chloride 105 mmol/L (98-107); Estimated GFR-MDRD Greater than 90; Globulin 3.2 g/dL (2.4-3.5); Glucose 140 mg/dL (70-105); Lipase 12 U/L (8-78); Potassium 3.9 mmol/L (3.5-5.1); Protein, Total 7.3 g/dL (6.0-8.3); Sodium 140 mmol/L (136-145)
[2017-01-27 15:23] LABS: Bilirubin Small (Negative); Blood, Urine Large (Negative); Clarity Cloudy (Clear); Glucose, Urine (Dipstick) Negative (Negative); Leukocyte Trace (Negative); Nitrite Negative (Negative); Protein, Urine (Dipstick) 100 mg/dL (Neg-Trace); RBC/HPF GREATER THAN 50-TNTC HPF (0-3); Urobilinogen 0.2 mg/dL (0.2-1.0)
[2017-01-27 15:24] LABS: Bacteria/HPF 1+ HPF (None Seen)
[2017-01-27 15:29] LABS: #Basophils 0.1 thou/uL (0.0-0.2); #Eosinphils 0.1 thou/uL (0.0-0.7); #Monocytes 0.6 thou/uL (0.11-0.59); #Neutrophils 14.3 thou/uL (1.40-6.50); %Basophils 0.4 % (0.0-1.0); %Eosinophils 0.7 % (0.0-10.0); %Lymphocytes 6.2 % (21.0-51.0); %Neutrophils 88.7 % (42.0-75.0); Anisocytosis SLIGHT = 6-15 cells (100X) (0-5/hpf); Hemoglobin 14.6 g/dL (12.0-16.0); MDiff Complete? YES; Mean Corpuscular HGB CONC 36.6 g/dL (32.0-36.0); Mean Corpuscular Hemoglobin 35.4 pg (27.0-31.0); Mean Corpuscular Volume 96.8 fl (81.0-99.0); Mean Platelet Volume 5.9 fL (7.4-10.4); PLT Morphology Comment Appears Adequate; Platelet Count 243 thou/uL (130-400); RBC Distribution Width 10.9 % (11.5-14.5); Red Blood Cell (RBC) Count 4.13 mill/uL (4.20-5.40); White Blood Cell (WBC) Count 16.1 thou/uL (4.8-10.8)
--- NOTE | 2017-01-27 18:09 | CT ---
CT OF THE ABDOMEN AND PELVIS WITH IV CONTRAST: Date: 01/27/17 PROVIDED CLINICAL HISTORY: Lower quadrant pain. FINDINGS: Comparison made with prior examinations, most recent of which is dated 11/15/16. The visualized lung bases are free of significant opacity. The solid abdominal organs demonstrate a stable CT appearance. A gallstone in the region of the gallb ladder neck is redemonstrated. There is moderate colonic fecal retention. The uterus appears enlarged and demonstrates numerous masses, most compatible with uterine fibroids. This fibroid involvement appears more conspicuous than on the prior study. Uterus measures at least 1 4.2 cm in greatest transverse dimension and about 15.0 cm in craniocaudal dimension. There is stable reticulation of the right lower quadrant fat, similar to prior studies. The appendix appears normal. There is no free fluid or free air apparent. The osseous structures demonstrate no concerning osteoblastic or osteolytic lesions. IMPRESSION: 1. Enlarged and heterogeneous uterus with multiple masses. This appears more conspicuous than on anil or examinations. The most common etiology would be uterine fibroids, but given the overall enlargemen t since the prior study, other etiologies should be considered. MENAGERIE CARETAKER consultation recommended. 2. Cholelithiasis. POS: [facility]
[2017-01-27] MEDS ORDERED: AMOXicillin 250 MG CAP ONE (19:44)
[2017-01-27] MEDS ORDERED: metroNIDAZOLE 250 MG TAB ONE (19:44)
== END 2017-01-27 20:21 | disposition home or self-care (01) ==
LOC: MADERS 14:13
DX: D25.9 Leiomyoma of uterus, unspecified (principal); N71.9 Inflammatory disease of uterus, unspecified; E11.9 Type 2 diabetes mellitus without complications; F32.9 Major depressive disorder, single episode, unspecified; F17.210 Nicotine dependence, cigarettes, uncomplicated
CPT/HCPCS: 36415; 71010; 74177; 80053; 81001; 82150; 83605; 83690; 84703; 85025; 87040; 87086; 96361; 96374; 96375; 96376; J1885; J2270; J2405; J7050

== ENCOUNTER 2017-05-19 14:13 | Outpatient (CLI) | payer OTHER ==
[2017-05-19 15:09] LABS: ALT (SGPT) 10 U/L (8-55); AST (SGOT) 7 U/L (5-34); Albumin 3.6 g/dL (3.5-5.0); Alkaline Phosphatase 57 U/L (40-150); Anion Gap 14 mmol/L (10-20); BUN (Urea Nitrogen) 10 mg/dL (7.0-18.7); Bilirubin, Total 0.6 mg/dL (0.2-1.2); Calc. Creatinine Clearance 0 mL/min (70-130); Calcium 9.2 mg/dL (7.8-10.44); Carbon Dioxide 26 mmol/L (22-29); Chloride 99 mmol/L (98-107); Estimated GFR-MDRD 86; Globulin 2.7 g/dL (2.4-3.5); Glucose 337 mg/dL (70-105); Potassium 4.1 mmol/L (3.5-5.1); Protein, Total 6.3 g/dL (6.0-8.3); Sodium 135 mmol/L (136-145)
[2017-05-19 15:15] LABS: Hemoglobin 11.7 g/dL (12.0-16.0); Mean Corpuscular HGB CONC 37.4 g/dL (32.0-36.0); Mean Corpuscular Hemoglobin 35.6 pg (27.0-31.0); Mean Corpuscular Volume 95.1 fl (81.0-99.0); Mean Platelet Volume 6.2 fL (7.4-10.4); Platelet Count 131 thou/uL (130-400); RBC Distribution Width 15.3 % (11.5-14.5); Red Blood Cell (RBC) Count 3.27 mill/uL (4.20-5.40); White Blood Cell (WBC) Count 2.5 thou/uL (4.8-10.8)
== END 2017-05-19 14:14 | disposition home or self-care (01) ==
LOC: MADLAB 14:13
DX: C53.0 Malignant neoplasm of endocervix (principal)
CPT/HCPCS: 36415; 80053; 85027

== ENCOUNTER 2017-05-23 14:48 | Emergency (ER) | payer OTHER ==
[2017-05-23 16:33] LABS: #Basophils 0.1 thou/uL (0.0-0.2); #Lymphocytes 0.2 thou/uL (1.20-3.40); #Monocytes 0.4 thou/uL (0.11-0.59); #Neutrophils 2.6 thou/uL (1.40-6.50); %Basophils 1.7 % (0.0-1.0); %Eosinophils 0.3 % (0.0-10.0); %Lymphocytes 7.4 % (21.0-51.0); %Monocytes 10.8 % (0.0-10.0); %Neutrophils 79.8 % (42.0-75.0); Mean Corpuscular HGB CONC 37.4 g/dL (32.0-36.0); Mean Corpuscular Hemoglobin 34.9 pg (27.0-31.0); Mean Corpuscular Volume 93.5 fl (81.0-99.0); Mean Platelet Volume 5.4 fL (7.4-10.4); Platelet Count 133 thou/uL (130-400); RBC Distribution Width 15.1 % (11.5-14.5); Red Blood Cell (RBC) Count 3.42 mill/uL (4.20-5.40); White Blood Cell (WBC) Count 3.3 thou/uL (4.8-10.8)
--- NOTE | 2017-05-23 16:39 | RAD ---
RADIOGRAPH CHEST 1 VIEW: 05/23/17 at 4:05 p.m. HISTORY: 31-year-old female with chest pain. FINDINGS: There are no air space densities, pulmonary edema, pneumothorax, or cardiomegaly. The left lateral c ostophrenic angles are sharp. The right lateral costophrenic angle is excluded from the field of view . Again noted is the left IJ implantable vascular access port with catheter tip overlying the SVC. Th e previously demonstrated left sided chest tube on the study of 04/03/17, has been removed. Focal defo rmity the lateral aspect of the left fifth rib. IMPRESSION: 1. No acute cardiopulmonary findings. 2. Left internal jugular implantable vascular access port. 3. Old fracture deformity at the lateral aspect of the left fifth rib. elizabeth [] POS: ANT
[2017-05-23] MEDS ORDERED: Ketorolac Tromethamine 30 MG/ML VIAL ONE (16:41)
[2017-05-23] MEDS ORDERED: Morphine 10 MG/ML VIAL ONE (16:41)
[2017-05-23] MEDS ORDERED: Ondansetron HCl/PF 4 MG/2 ML Vial ONE ×2 (16:41→22:58)
[2017-05-23 16:43] LABS: Bilirubin Negative (Negative); Blood, Urine Negative (Negative); Clarity Clear (Clear); Glucose, Urine (Dipstick) >=1000 mg/dL (Negative); Leukocyte Negative (Negative); Nitrite Negative (Negative); Protein, Urine (Dipstick) Negative (Neg-Trace); RBC/HPF 0-3 HPF (0-3); Urobilinogen 0.2 mg/dL (0.2-1.0); pH, Urine 5.5 (5.0-9.0)
[2017-05-23 16:45] LABS: Bacteria/HPF Rare-Few HPF (None Seen); WBC/HPF 0-3 HPF (0-3)
[2017-05-23 16:46] LABS: ALT (SGPT) 9 U/L (8-55); AST (SGOT) 9 U/L (5-34); Albumin 3.5 g/dL (3.5-5.0); Alkaline Phosphatase 66 U/L (40-150); Anion Gap 15 mmol/L (10-20); BUN (Urea Nitrogen) 10 mg/dL (7.0-18.7); Bilirubin, Total 0.8 mg/dL (0.2-1.2); Calc. Creatinine Clearance 0 mL/min (70-130); Carbon Dioxide 23 mmol/L (22-29); Chloride 100 mmol/L (98-107); Estimated GFR-MDRD Greater than 90; Globulin 2.8 g/dL (2.4-3.5); Glucose 400 mg/dL (70-105); Lipase 23 U/L (8-78); Potassium 4.1 mmol/L (3.5-5.1); Protein, Total 6.3 g/dL (6.0-8.3); Sodium 134 mmol/L (136-145)
[2017-05-23 16:47] LABS: Manual Diff?? NO
[2017-05-23 16:48] LABS: BHCG - Serum Negative (NEGATIVE); Pregs Control Background? CLEAR/WHITE (CLR/WHITE); Pregs Control Bar Appear? YES (CONTROL BAR)
[2017-05-23] MEDS ORDERED: Insulin Regular 300 UNITS/3 ML VIAL ONE (20:19)
[2017-05-23] MEDS ORDERED: MORPHINE 10 MG/ML SYRINGE ONE (21:10)
--- NOTE | 2017-05-23 23:19 | CT ---
CT ABDOMEN AND PELVIS WITH CONTRAST 05/23/17 COMPARISON: 01/27/17 HISTORY: Diffuse abdominal pain. TECHNIQUE: Multiple contiguous axial images were obtained in a CT of the abdomen and pelvis with contrast. PO co ntrast was administered. Coronal reformats were performed. FINDINGS: There is a calcified gallstone in the gallbladder. The liver, kidneys, adrenal glands, spleen, and pa ncreas are unremarkable. No free air, free fluid, or stranding changes are seen in the abdomen or pel vis. The uterus is enlarged and heterogeneous in appearance. There is likely a large fibroid in the uterus as well as other smaller fibroids. The largest fibroid measures 8.7 cm in greatest dimension. The la rge and small bowel are unremarkable. The appendix is unremarkable. No abdominal or pelvic lymphadeno leonidas are seen. The osseous structures, visualized inferior thorax and abdominal wall soft tissues are unremarkable. IMPRESSION: 1. Cholelithiasis. 2. Enlarged uterus with multiple masses likely secondary to fibroids. POS: DIRK
[2017-05-24] MEDS ORDERED: Promethazine HCl 25 MG/ML VIAL ONE (03:16)
[2017-05-24] MEDS ORDERED: Morphine 10 MG/ML VIAL ONE (03:16)
== END 2017-05-24 04:45 | disposition short-term general hospital (02) ==
LOC: MADERS 14:48
DX: C53.9 Malignant neoplasm of cervix uteri, unspecified (principal); E11.9 Type 2 diabetes mellitus without complications; C79.82 Secondary malignant neoplasm of genital organs; F41.9 Anxiety disorder, unspecified; F31.9 Bipolar disorder, unspecified; F17.210 Nicotine dependence, cigarettes, uncomplicated; Z79.84 Long term (current) use of oral hypoglycemic drugs
CPT/HCPCS: 36415; 36416; 71045; 74177; 80053; 81001; 82150; 83605; 83690; 84703; 85025; 87040; 87086; 96361; 96374; 96375; 96376; J1815; J1885; J2270; J2405; J2550; J7050

== ENCOUNTER 2017-06-15 11:24 | Emergency (ER) | payer OTHER ==
[2017-06-15 12:13] LABS: Bacteria/HPF 2+ HPF (None Seen); Bilirubin Negative (Negative); Blood, Urine Trace (Negative); Clarity Slightly Cloudy (Clear); Glucose, Urine (Dipstick) 500 mg/dL (Negative); Leukocyte Small (Negative); Nitrite Negative (Negative); Protein, Urine (Dipstick) Negative (Neg-Trace); RBC/HPF 0-3 HPF (0-3); Specific Gravity, Urine 1.015 (1.005-1.030); Urobilinogen 0.2 mg/dL (0.2-1.0); WBC/HPF 21-50 HPF (0-3)
[2017-06-15] MEDS ORDERED: Ondansetron HCl/PF 4 MG/2 ML Vial ONE (12:22)
[2017-06-15] MEDS ORDERED: Sulfameth/Trimethoprim DS 800-160mg TAB ONE (12:22)
[2017-06-15] MEDS ORDERED: Ketorolac Tromethamine 30 MG/ML VIAL ONE (12:22)
[2017-06-15 12:28] LABS: Anisocytosis SLIGHT = 6-15 cells (100X) (0-5/hpf); Hemoglobin 12.5 g/dL (12.0-16.0); MDiff Complete? YES; Mean Corpuscular HGB CONC 36.7 g/dL (32.0-36.0); Mean Corpuscular Hemoglobin 35.1 pg (27.0-31.0); Mean Corpuscular Volume 95.7 fl (81.0-99.0); Mean Platelet Volume 4.9 fL (7.4-10.4); Platelet Count 221 thou/uL (130-400); RBC Distribution Width 13.3 % (11.5-14.5); Red Blood Cell (RBC) Count 3.54 mill/uL (4.20-5.40); White Blood Cell (WBC) Count 7.6 thou/uL (4.8-10.8)
[2017-06-15 12:29] LABS: Band 5 % (5-11); Neutrophil 85 % (42-75)
[2017-06-15 12:30] LABS: Lymphocytes 5 % (21-51); Monocytes 5 % (0-10)
[2017-06-15 13:01] LABS: ALT (SGPT) Less than 7 U/L (8-55); AST (SGOT) 4 U/L (5-34); Albumin 3.8 g/dL (3.5-5.0); Alkaline Phosphatase 65 U/L (40-150); Anion Gap 16 mmol/L (10-20); BUN (Urea Nitrogen) 6 mg/dL (7.0-18.7); Bilirubin, Total 0.5 mg/dL (0.2-1.2); Calc. Creatinine Clearance 0 mL/min (70-130); Calcium 9.6 mg/dL (7.8-10.44); Carbon Dioxide 26 mmol/L (22-29); Chloride 98 mmol/L (98-107); Estimated GFR-MDRD Greater than 90; Globulin 3.4 g/dL (2.4-3.5); Glucose 239 mg/dL (70-105); Potassium 4.2 mmol/L (3.5-5.1); Protein, Total 7.2 g/dL (6.0-8.3); Sodium 136 mmol/L (136-145)
[2017-06-15] MEDS ORDERED: Fluconazole 100 MG TAB ONE (13:35)
== END 2017-06-15 13:57 | disposition home or self-care (01) ==
LOC: MADERS 11:24
DX: N39.0 Urinary tract infection, site not specified (principal); N76.0 Acute vaginitis; E11.9 Type 2 diabetes mellitus without complications; F41.9 Anxiety disorder, unspecified; F31.9 Bipolar disorder, unspecified; F17.210 Nicotine dependence, cigarettes, uncomplicated; Z85.41 Personal history of malignant neoplasm of cervix uteri; Z79.84 Long term (current) use of oral hypoglycemic drugs; Z79.899 Other long term (current) drug therapy
CPT/HCPCS: 36415; 80053; 81001; 82150; 85007; 85027; 85652; 87040; 87086; 96374; 96375; J1885; J2405

== ENCOUNTER 2017-08-30 17:46 | Emergency (ER) | payer OTHER ==
[~2017-08-30 17:46] MED LIST changes: -Iopamidol 370 76% 100 ML VIAL ONE
[2017-08-30 18:23] LABS: Bilirubin Negative (Negative); Blood, Urine Trace (Negative); Clarity Clear (Clear); Glucose, Urine (Dipstick) Negative (Negative); Leukocyte Trace (Negative); Nitrite Negative (Negative); Protein, Urine (Dipstick) Negative (Neg-Trace); Specific Gravity, Urine 1.025 (1.005-1.030); Urobilinogen 0.2 mg/dL (0.2-1.0)
[2017-08-30 18:26] LABS: Bacteria/HPF Rare-Few HPF (None Seen); RBC/HPF 0-3 HPF (0-3); Yeast-All Forms 1+ HPF (None Seen)
[2017-08-30 18:29] LABS: #Basophils 0.1 thou/uL (0.0-0.2); #Eosinphils 0.1 thou/uL (0.0-0.7); #Lymphocytes 0.4 thou/uL (1.20-3.40); #Monocytes 0.5 thou/uL (0.11-0.59); #Neutrophils 4.7 thou/uL (1.40-6.50); %Basophils 1.2 % (0.0-1.0); %Eosinophils 1.9 % (0.0-10.0); %Lymphocytes 7.6 % (21.0-51.0); %Monocytes 8.7 % (0.0-10.0); %Neutrophils 80.6 % (42.0-75.0); Hemoglobin 9.5 g/dL (12.0-16.0); Mean Corpuscular HGB CONC 34.7 g/dL (32.0-36.0); Mean Corpuscular Hemoglobin 30.7 pg (27.0-31.0); Mean Corpuscular Volume 88.5 fL (78.0-98.0); Mean Platelet Volume 4.9 fL (7.4-10.4); Platelet Count 211 thou/uL (130-400); RBC Distribution Width 16.6 % (11.5-14.5); White Blood Cell (WBC) Count 5.8 thou/uL (4.8-10.8)
[2017-08-30 18:43] LABS: ALT (SGPT) 8 U/L (8-55); AST (SGOT) 6 U/L (5-34); Albumin 3.9 g/dL (3.5-5.0); Alkaline Phosphatase 52 U/L (40-150); Anion Gap 21 mmol/L (10-20); BUN (Urea Nitrogen) 16 mg/dL (7.0-18.7); Bilirubin, Total 0.5 mg/dL (0.2-1.2); Calc. Creatinine Clearance 0 mL/min (70-130); Calcium 9.7 mg/dL (7.8-10.44); Carbon Dioxide 24 mmol/L (22-29); Chloride 98 mmol/L (98-107); Estimated GFR-MDRD Greater than 90; Globulin 3.6 g/dL (2.4-3.5); Glucose 238 mg/dL (70-105); Potassium 4.8 mmol/L (3.5-5.1); Protein, Total 7.5 g/dL (6.0-8.3); Sodium 138 mmol/L (136-145)
[2017-08-30] MEDS ORDERED: Nitrofurantoin Monohyd/M-Cryst 100 MG CAP ONE (20:12)
[2017-08-31 00:41] LABS: Amphetamine Not Detected (NotDetected); Barbiturates Screen Not Detected (NotDetected); Benzodiazepine Screen Not Detected (NotDetected); Cocaine Metabolite Screen Not Detected (NotDetected); Medtox Control Line Valid? VALID (VALID); Methadone Not Detected (NotDetected); Methamphetamine Not Detected (NotDetected); Opiate Screen Detected (NotDetected); Oxycodone Screen Not Detected (NotDetected); Phencyclidine (PCP) Not Detected (NotDetected); THC/Cannabinoid Screen Detected (NotDetected); Tricyclic Screen Not Detected (NotDetected)
== END 2017-08-30 22:56 | disposition home or self-care (01) ==
LOC: MADERS 17:46
DX: N39.0 Urinary tract infection, site not specified (principal); R00.0 Tachycardia, unspecified; E11.9 Type 2 diabetes mellitus without complications; F17.200 Nicotine dependence, unspecified, uncomplicated; Z79.84 Long term (current) use of oral hypoglycemic drugs
CPT/HCPCS: 36415; 80053; 80306; 81003; 81015; 83605; 85025; 87040; 87086; 96365; 96366; J1956; J7050

== ENCOUNTER 2018-03-10 11:07 | Outpatient (CLI) | payer OTHER ==
[2018-03-10 11:57] LABS: ALT (SGPT) 8 U/L (8-55); AST (SGOT) 10 U/L (5-34); Albumin 4.3 g/dL (3.5-5.0); Alkaline Phosphatase 65 U/L (40-150); Anion Gap 18 mmol/L (10-20); BUN (Urea Nitrogen) 8 mg/dL (7.0-18.7); Bilirubin, Total 0.7 mg/dL (0.2-1.2); Calc. Creatinine Clearance 0 mL/min (70-130); Calcium 9.6 mg/dL (7.8-10.44); Carbon Dioxide 24 mmol/L (22-29); Cardiac Risk 3.9 (Less than 4.5); Chloride 102 mmol/L (98-107); Cholesterol 144 mg/dl (< 200 Desired); Estimated GFR-MDRD Greater than 90; Glucose 316 mg/dL (70-105); HDL Cholesterol 37 mg/dL (>60 Neg Risk); LDL Cholesterol, Calculated 66 mg/dL; Potassium 3.9 mmol/L (3.5-5.1); Protein, Total 7.3 g/dL (6.0-8.3); Sodium 140 mmol/L (136-145); Triglycerides 207 mg/dL (Less than 150)
[2018-03-10 12:52] LABS: #Basophils 0.1 thou/uL (0.0-0.2); #Eosinphils 0.1 thou/uL (0.0-0.7); #Lymphocytes 0.7 thou/uL (1.20-3.40); #Monocytes 0.3 thou/uL (0.11-0.59); #Neutrophils 3.2 thou/uL (1.40-6.50); %Basophils 1.5 % (0.0-1.0); %Eosinophils 2.7 % (0.0-10.0); %Lymphocytes 15.4 % (21.0-51.0); %Monocytes 7.2 % (0.0-10.0); %Neutrophils 73.3 % (42.0-75.0); Mean Corpuscular Hemoglobin 39.8 pg (27.0-31.0); Mean Corpuscular Volume 110.4 fL (78.0-98.0); Mean Platelet Volume 7.4 fL (7.4-10.4); Platelet Count 158 thou/uL (130-400); RBC Distribution Width 12.4 % (11.5-14.5); Red Blood Cell (RBC) Count 3.76 mill/uL (4.20-5.40); White Blood Cell (WBC) Count 4.3 thou/uL (4.8-10.8)
[2018-03-10 12:53] LABS: Anisocytosis SLIGHT = 6-15 cells (100X) (0-5/hpf); Macrocytosis SLIGHT = 6-15 cells (100X) (0-5/hpf); Platelet Morphology Comment Appears Adequate
[2018-03-10 17:25] LABS: Creatinine, Urine 66.59 mg/dL (47-110); Microalbumin Urine 4.9 mg/dL (0.5-50.0); Microalbumin/Creat Ratio 73.6 mg/g (Less than 30)
[2018-03-10 17:34] LABS: Hemoglobin A1c 7.6 % (4.0-6.0)
== END 2018-03-10 11:08 | disposition home or self-care (01) ==
LOC: MADLABBHPM 11:07
PROVIDERS: ATTEND Family Medicine
DX: E11.9 Type 2 diabetes mellitus without complications (principal)
CPT/HCPCS: 36415; 80053; 80061; 82043; 83036; 85025

== ENCOUNTER 2018-12-08 12:27 | Emergency (ER) | payer OTHER ==
[2018-12-08 13:05] LABS: Bilirubin Negative (Negative); Blood, Urine Negative (Negative); Clarity Clear (Clear); Glucose, Urine (Dipstick) 500 mg/dL (Negative); Leukocyte Negative (Negative); Nitrite Negative (Negative); Protein, Urine (Dipstick) Negative (Neg-Trace); Urobilinogen 0.2 mg/dL (Less than 2)
[2018-12-08 13:07] LABS: Pregnancy Test - Urine (BHCG) Negative (Negative)
[2018-12-08 13:08] LABS: Pregu Control Background? CLEAR/WHITE (CLR/WHITE); Pregu Control Bar Appear? YES (CONTROL BAR)
[2018-12-08] MEDS ORDERED: Fluconazole 100 MG TAB ONE (13:24)
[2018-12-08] MEDS ORDERED: Phenazopyridine HCl 97.5 MG TABLET ONE (13:24)
== END 2018-12-08 13:29 | disposition home or self-care (01) ==
LOC: MADERS 12:27
DX: B37.3 Candidiasis of vulva and vagina (principal); R30.0 Dysuria; E11.9 Type 2 diabetes mellitus without complications; Z85.89 Personal history of malignant neoplasm of other organs and systems; F41.9 Anxiety disorder, unspecified; F31.9 Bipolar disorder, unspecified; F17.200 Nicotine dependence, unspecified, uncomplicated; Z79.84 Long term (current) use of oral hypoglycemic drugs
CPT/HCPCS: 81003; 81025; 99283

== ENCOUNTER 2019-04-22 13:59 | Emergency (ER) | payer OTHER ==
[2019-04-22] MEDS ORDERED: HYDROcodone/Acetaminophen 5/325 mg Tablet ONE (15:02)
[2019-04-22 15:26] LABS: #Lymphocytes 0.6 thou/uL (1.20-3.40); #Monocytes 0.4 thou/uL (0.11-0.59); #Neutrophils 4.5 thou/uL (1.40-6.50); %Basophils 0.6 % (0.0-1.0); %Eosinophils 0.6 % (0.0-10.0); %Lymphocytes 11.1 % (21.0-51.0); %Monocytes 6.6 % (0.0-10.0); %Neutrophils 81.2 % (42.0-75.0); Hemoglobin 11.3 g/dL (12.0-16.0); Mean Corpuscular HGB CONC 33.2 g/dL (32.0-36.0); Mean Corpuscular Hemoglobin 29.8 pg (27.0-31.0); Mean Corpuscular Volume 89.9 fL (78.0-98.0); Mean Platelet Volume 5.9 fL (7.4-10.4); Platelet Count 221 thou/uL (130-400); Red Blood Cell (RBC) Count 3.77 mill/uL (4.20-5.40); White Blood Cell (WBC) Count 5.5 thou/uL (4.8-10.8)
[2019-04-22 15:36] LABS: BHCG - Serum Negative (NEGATIVE); Pregs Control Background? CLEAR/WHITE (CLR/WHITE); Pregs Control Bar Appear? YES (CONTROL BAR)
[2019-04-22 15:40] LABS: ALT (SGPT) 10 U/L (8-55); AST (SGOT) 10 U/L (5-34); Albumin 3.8 g/dL (3.5-5.0); Alkaline Phosphatase 71 U/L (40-110); Anion Gap 15 mmol/L (10-20); BUN (Urea Nitrogen) 8 mg/dL (7.0-18.7); Bilirubin, Total 0.2 mg/dL (0.2-1.2); Calc. Creatinine Clearance 0 mL/min (70-130); Calcium 9.7 mg/dL (7.8-10.44); Carbon Dioxide 25 mmol/L (22-29); Chloride 102 mmol/L (98-107); Estimated GFR-MDRD Greater than 90; Globulin 2.9 g/dL (2.4-3.5); Glucose 116 mg/dL (70-105); Lipase 54 U/L (8-78); Potassium 3.8 mmol/L (3.5-5.1); Protein, Total 6.7 g/dL (6.0-8.3); Sodium 138 mmol/L (136-145)
[2019-04-22 16:27] LABS: Bilirubin Negative (Negative); Blood, Urine Large (Negative); Glucose, Urine (Dipstick) Negative (Negative); Leukocyte Moderate (Negative); Nitrite Negative (Negative); Protein, Urine (Dipstick) 100 mg/dL (Neg-Trace); Urobilinogen 0.2 mg/dL (Less than 2)
[2019-04-22 16:32] LABS: Clarity Cloudy (Clear)
[2019-04-22 16:33] LABS: Bacteria/HPF Rare-Few HPF (None Seen); RBC/HPF Greater than 50 HPF (0-3); Squamous Epithelial 0-3 HPF (0-3); WBC/HPF 21-50 HPF (0-3)
[2019-04-22] MEDS ORDERED: Morphine 2 MG/ML SYRINGE ONE ×2 (17:23→18:02)
--- NOTE | 2019-04-22 17:30 | CT ---
EXAM: ABDOMEN CT WITH CONTRAST PELVIC CT WITH CONTRAST: 04/22/19 COMPARISON: 05/23/17 HISTORY: Chemotherapy and radiation therapy one year ago for cervical cancer. Hysterectomy. Abdominal pain. FINDINGS: ABDOMEN CT: Lung bases are clear. Visualized heart is unremarkable. The descending thoracic aorta has a normal ca liber. The abdominal aorta is also unremarkable. Redemonstration of a large calculus in the lumen of the gallbladder, measuring 1.2 cm. No evidence of cholecystitis. Portal vein is patent. The liver, spleen, pancreas, and adrenal glands have appropria te attenuation and enhancement. Decreased visceral fat limits evaluation for inflammatory change. No mesenteric mass, lymphadenopathy , free air or free fluid. There is a double-J ureteral stent in the right renal pelvis, with termination in the left aspect of the bladder. There is severe dilatation of the right intrarenal collecting system and right ureter. T here is appropriate enhancement of both kidneys. Mild dilatation of the left intrarenal collecting sy stem is noted. No significant dilatation of the left ureter. No mesenteric mass, lymphadenopathy, free air or free fluid. Limited evaluation of the alimentary canal by the absence of oral contrast. Multiple fluid filled sma ll bowel loops in the left hemiabdomen with thickened mucosa. Correlate for enteritis versus a develo ping ileus versus a partial small bowel obstruction. Exact transition segment is presumed to be in th e left upper quadrant. Based on the images provided, the transition segment may be on coronal image # 57 and axial image #51. Distal small bowel loops are decompressed. Ileocecal junction is unremarkable . Suggestion of a normal caliber appendix. Scattered fecal material in a nondistended, nondilated col on. There is evidence of diverticulosis. No evidence of diverticulitis. PELVIC CT: Findings compatible with the previous hysterectomy. There does appear to be stranding of the presacra l fat which is presumed to represent post treatment change. There does appear circumferential mucosa thickening involving the distal sigmoid colon and proximal rectum. The findings are presumed to be ia trogenic. There is abnormal fluid attenuation in the expected region of the vaginal vault. There is a mixed attenuation focus with air along its periphery in the right hemipelvis, measuring 4.8 x 3.3 cm . Urinary bladder is essentially unremarkable. IMPRESSION: 1. Postsurgical changes compatible with hysterectomy. There does appear to be some abnormal atte nuation in the right hemipelvis with a small focus of air. Significance is uncertain. Infected fluid collection versus the right ovary versus residual tumor are differential considerations. Correlate cl inically. 2. Severe right sided hydronephrosis despite the presence of a double-J ureteral stent which kaiser ears to be appropriately located. 3. Multiple fluid filled loops of small bowel which may represent developing ileus, partial smal l bowel obstruction, or enteritis. Correlate clinically. POS: CET
== END 2019-04-22 18:12 | disposition left against medical advice (07) ==
LOC: MADERS 13:59
DX: N13.30 Unspecified hydronephrosis (principal); N39.0 Urinary tract infection, site not specified; R10.2 Pelvic and perineal pain; E11.9 Type 2 diabetes mellitus without complications; F41.9 Anxiety disorder, unspecified; F31.9 Bipolar disorder, unspecified; F17.220 Nicotine dependence, chewing tobacco, uncomplicated; Z79.84 Long term (current) use of oral hypoglycemic drugs; Z79.899 Other long term (current) drug therapy
CPT/HCPCS: 74177; 80053; 81003; 81015; 83605; 83690; 84703; 85025; 96374; 96376; J2270; J7620